=== PATIENT | male | born 1980 | race Caucasian/White ===

== ENCOUNTER 2022-01-16 10:22 | Emergency (ER) | payer BC ==
[~2022-01-16] VITALS: Ht 175.3 cm; Wt 77.1 kg
[2022-01-16 10:31] VITALS: BP_SYST 129
--- NOTE | 2022-01-16 10:33 | NUR ---
RECEIVED PT FROM JEANNA SCHWARTZ. PT BIBS, HAS C/O LEFT LOWER EXTREMITY WOUND. WOUND OPEN, SWOLLEN, WITH SEROSANGUINEOUS DRAINAGE. PT IS AAOX4. RESP E/U. ON R/A. NORMAL S1S2 NOTED. DENIES N/V/D/C. DISTAL PULSES NORMAL. PT STATES HE HAS THROBBING PAIN 09/28. SIDERAILS UP X2.
--- NOTE | 2022-01-16 10:54 | NUR ---
# 20 gauge angiocath placed to RAC. Use of asceptic technique. Opsite placed over site. Blood return noted. Blood for lab drawn from site. Flushed with 10 cc of normal saline. No evidence of infiltration noted. Patient tolerated well.
[2022-01-16 10:58] LABS: BASOPHILS # (AUTO) 0.1 K/uL (0.0-0.2); BASOPHILS % (AUTO) 0.6 % (0.0-2.0); EOSINOPHILS # (AUTO) 0.3 K/uL (0.0-0.4); EOSINOPHILS % (AUTO) 3.1 % (0.0-4.0); HEMATOCRIT 42.3 % (36-54); LYMPHOCYTES # (AUTO) 2.4 K/uL (1.0-5.5); LYMPHOCYTES % (AUTO) 28.6 % (20.5-51.5); MEAN CORPUSCULAR VOLUME 94 fL (79.0-98.0); MONOCYTES # (AUTO) 0.8 K/uL (0.0-1.0); NEUTROPHILS # (AUTO) 4.8 K/uL (1.8-7.7); NEUTROPHILS % (AUTO) 57.7 % (40.0-70.0); PLATELET COUNT (AUTO) 261 K/uL (130-430); RED BLOOD CELL COUNT(AUTO) 4.51 MIL/uL (4.2-6.2); WHITE BLOOD COUNT (AUTO) 8.3 K/uL (4.8-10.8)
[2022-01-16 11:17] LABS: CALCIUM 9.1 mg/dL (8.4-11.0); CREATININE 1.15 mg/dL (0.55-1.30); POTASSIUM 4.2 mmol/L (3.5-5.1)
--- NOTE | 2022-01-16 11:20 | NUR ---
DR. KOWALSKI I AND D TO E. SITE CLEANSED, PATTED, DRY AND DRESSING PLACED.
[2022-01-16 11:22] LABS: ALBUMIN 3.3 g/dL (3.4-4.8); C-REACTIVE PROTEIN QUANT 1.6 mg/dL (0-0.5); TOTAL BILIRUBIN 0.3 mg/dL (0.0-1.0)
[2022-01-16] MEDS ORDERED: LIDOCAINE 1% 10 MG/ML, 20 ML MDV INJ ONE (11:30)
[2022-01-16] MEDS ORDERED: DIPHTH,PERTUSS(ACELL),TET VAC 0.5 ML VIAL (Tdap) I.M. ONE (11:30)
[2022-01-16] MEDS ORDERED: BACITRACIN 1 GM OINT TP ONE (11:30)
[2022-01-16] MEDS ORDERED: CLIN-142 PO (11:58)
--- NOTE | 2022-01-16 12:09 | NUR ---
TDAP IM GIVEN TO LEFT DELTOID, COVERED WITH CDI BANDAID.
--- NOTE | 2022-01-16 13:09 | NUR ---
Patient given written and verbal discharge instructions and verbalizes understanding. ER MD discussed with patient the results and treatment provided. Patient in stable condition. ID arm band removed. IV catheter removed intact and dressing applied, no active bleeding. Rx of CLINDAMYCIN given. Patient educated on pain management and to follow up with PMD. Pain Scale 2/10. Opportunity for questions provided and answered. Medication side effect fact sheet provided.
[2022-01-16 13:10] VITALS: BP_SYST 122
== END 2022-01-16 13:09 | disposition home or self-care (01) ==
LOC: SED 10:22
DX: L02.416 Cutaneous abscess of left lower limb (principal); Z79.899 Other long term (current) drug therapy
CPT/HCPCS: 99283; 10060; 80053; 85025; 86140; 36415; 90715; 83605; 90471; J2001